=== PATIENT | female | born 1980 | race Hispanic/Latino ===

== ENCOUNTER 2018-07-16 18:49 | Emergency (ER) | payer OTHER ==
[~2018-07-16] VITALS: Ht 157.5 cm; Wt 103.9 kg
[2018-07-16 19:40] VITALS: BP 152/85
--- NOTE | 2018-07-16 19:51 | NUR ---
US Champion notified of order of US
[2018-07-16 20:29] LABS: APPEARANCE,URINE CLOUDY (CLEAR); BILIRUBIN,URINE NEGATIVE (NEGATIVE); UA COLOR RED (YELLOW); UROBILINOGEN,URINE NORMAL (NEGATIVE)
--- NOTE | 2018-07-16 20:30 | NUR ---
US US at patients bedside
--- NOTE | 2018-07-16 20:42 | ER.PDOC ---
General Chief Complaint: Vaginal Bleed Stated Complaint: VAGINAL BLEEDING Time seen by MD: 19:50 Source: patient Exam Limitations: no limitations History of Present Illness Initial Comments Pt noted vaginal spotting on 07/11. Bleeding became more brisk yesterday. Assoc with L pelvic pain. 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, spotting LMP (females 10-50): 2 months Test: clinic Care: clinic Contraceptive: none Associated Symptoms: denies symptoms Prior symptoms/Treatment: Recenly Seen Past Medical History Medical History: no pertinent history Surgical History: appendectomy, cholecystectomy LMP (females 10-50): May Family History Significant Family History: no pertinent family hx Social History Smoking: non-smoker Alcohol Use: none Drug Use: none Review of Systems Constitutional: no symptoms reported EENTM: no symptoms reported Respiratory: no symptoms reported Cardiovascular: no symptoms reported Gastrointestinal: no symptoms reported Genitourinary: other (L pelvic pain and vaginal bleeding) Musculoskeletal: no symptoms reported Skin: no symptoms reported Psychiatric/Neurological: no symptoms reported Endocrine: no symptoms reported Physical Exam General Appearance: No Apparent Distress EENT: eyes nml inspection, nml ENT inspection, pharynx nml Neck: nml inspection, non-tender Cardiovascular/Respiratory: Regular Rate, Rhythm, No M/R/G, Normal Peripheral Pulses, No JVD, Normal Breath Sounds, No Respiratory Distress Abdomen: Normal Bowel Sounds, Soft, No Organomegaly, No Pulsatile Mass, Tenderness (L pelvic) Back: nml inspection Extremities: Normal Range of Motion, Non-Tender, Normal Inspection, No Pedal Edema, No Calf Tenderness, Normal Capillary Refill Neurologic/Psychiatric: unit controller II-XII NML as Tested, No Motor/Sensory Deficits, Alert, Normal Mood/Affect, Oriented x 3 Skin: Normal Color, Warm/Dry Results/Orders Results/Orders Orders - CHAD VILLANUEVA MD Abo/Rh Type (07/16/18 20:12) Urinalysis (07/16/18 20:12) Hcg, Quantitative (07/16/18 20:12) Us Preg Before 14 Wks (07/16/18 20:12) Us Tv-Ob (07/16/18 20:21) Urine Culture (07/16/18 20:15) Vital Signs Date Time Temp Pulse Resp B/P (MAP) Pulse Ox O2 Delivery O2 Flow Rate FiO2 07/16/18 19:40 98.0 66 20 100 Room Air 98.0 07/16/18 19:40 98.0 66 20 152/85 (107) 100 Room Air 98.0 Laboratory Tests Test 07/16/18 20:15 07/16/18 20:20 Urine Collection Type UNKNOWN Urine Color RED (YELLOW) H Urine Appearance CLOUDY (CLEAR) H Urine Bilirubin NEGATIVE MG/DL (NEGATIVE) Urine Ketones 5 mg/dL (NEGATIVE) H Urine Specific [place] 1.020 (1.005-1.035) Urine pH 5 (5.0-6.0) Urine Protein 100 mg/dL (NEGATIVE) H Urine Urobilinogen NORMAL (NEGATIVE) Urine Nitrate POSITIVE (NEGATIVE) Urine Leukocyte Esterase 100/ul 1+ (NEGATIVE) Urine Blood 250 4+ (NEGATIVE) H Urine RBC TNTC RBC/HPF (NONE SEEN) H Urine WBC 0-2 WBC/HPF (0-2) Urine Squamous Epithelial Cells FEW #/HPF (FEW) Urine Bacteria FEW (NONE SEEN) H Urine Glucose NORMAL (NEGATIVE) Human Chorionic Gonadotropin, Quant 6094 mIU/mL Blood Bank Test 07/16/18 20:20 Blood Type A POSITIVE Progress Progress Pt had US done in [place], [place] on 07/08 which showed gest sac at 5w3d without pole, possible early vs blighted ovum. Serum HCG was 4852 on 07/12. EKG/XRAY/CT/US Utrasound Comments: No definitive gest sac noted but area thought to be gest sac seen. Maricruz aleman Departure Time of Disposition: 22:31 Disposition: 01 HOME, SELF-CARE Impression: Primary Impression: Threatened Additional Impression: Hemorrhagic cystitis Condition: Stable Referrals: PCP,UNKNOWN (PCP) PRIMARY CARE PROVIDER Additional Instructions: Rx Keflex Duration or Time Spent with Pa: 35 Problem Qualifiers CHAD VILLANUEVA MD Jul 16, 2018 20:42
--- NOTE | 2018-07-16 21:17 | NUR ---
US Patient is back from US
--- NOTE | 2018-07-16 21:38 | DIREP ---
PROCEDURE:US OB 1ST TRI - TV COMPARISON:None. INDICATIONS:6-7 wks gest, vaginal bleeding TECHNIQUE:Transabdominal and endovaginal pelvic ultrasound images were obtained. Endovaginal images were obtained to optimally evaluate the and maternal adnexal structures. FINDINGS: LMP: May 27, 2018, corresponding to an EGA of 7 W 1 D TATA (LMP): Mar 03, 2019 NO INTRAUTERINE GESTATIONAL SAC:Absent. UTERUS:Normal. Subtle area of decreased echotexture in the region of the endometrium, noted by the technologist but limited on these images. This could be a small gestational sac. However limited evaluation. OVARIES:Normal. Right ovary measures 4.2 x 2.6 x 3.7 cm. Left ovary measures 3.3 x 1.8 x 2.3 cm. There are no adnexal masses. CUL-DE-SAC:Normal. OTHER:Negative. CONCLUSION: of unknown location. Differential considerations include early intrauterine , failing intrauterine or sonographically occult ectopic . Recommend close obstetric follow-up. Dictated by: Zach Dhaliwal M.D. on 07/16/2018 at 09:34 PM
[2018-07-16 22:30] VITALS: BP 146/88
[2018-07-16 23:00] VITALS: BP 146/88
== END 2018-07-16 22:50 | disposition home or self-care (01) ==
LOC: ER 18:49
DX: O20.0 Threatened abortion (principal); N30.91 Cystitis, unspecified with hematuria; Z90.49 Acquired absence of other specified parts of digestive tract; Z3A.01 Less than 8 weeks gestation of pregnancy
CPT/HCPCS: 36415; 76801; 76817; 81000; 84702; 86900; 87086; 99285